=== PATIENT | female | born 1935 ===

== ENCOUNTER 2017-05-28 14:21 | Emergency (ER) | payer MEDICARE ==
--- NOTE | 2017-05-28 15:06 | UC ---
Eye Complaint HPI - History of Current Complaint Chief Complaint: UCEye Stated Complaint: LEFT EYE COMPLAINT Hx Obtained From: Patient Onset/Duration: Gradual Onset, Lasting Weeks, Worse Since - onset. Timing: Constant Severity Initially: Mild Severity Currently: Moderate Location of Injury: Eye Lid (lower) - on the left Character: Dull - soreness. Aggravating Factor(s): Blinking, Other - pushing on it. Alleviating Factor(s): Nothing Associated Signs And Symptoms: Positive: Swelling. Negative: Drainage (Clear), Drainage (Purulent) Related History: Diagnosed As: - Stye - Risk Factors Penetrating Injury Risk Factor: Negative Globe Rupture Risk Factors: Negative Acute Glaucoma Risk Factors: Negative - Allergies/Home Medications Allergies/Adverse Reactions: Allergies Allergy/AdvReac Type Severity Reaction Status Date / Time CASEY Inhibitors AdvReac Intermediate Coughing Verified 05/28/17 15:00 Home Medications: Home Medications Amitriptyline TAB* [Elavil TAB*] 10 mg PO BEDTIME 05/28/17 [History Confirmed ] Atenolol TAB* [Tenormin TAB* 50 MG] 50 mg PO DAILY 05/28/17 [History Confirmed 05/28/17] PMH/Surg Hx/FS Hx/Imm Hx Cardiovascular History: Hypertension - Family History Known Family History: Positive: Hypertension Negative: Cardiac Disease, Diabetes - Social History Occupation: Retired Lives: Alone Alcohol Use: None Substance Use Type: None Smoking Status (MU): Never Smoked Tobacco Have You Smoked in the Last Year: No Review of Systems Eyes: Blurred Vision, Eye Redness - in the lower lid. All Other Systems Reviewed And Are Negative: Yes Physical Exam Triage Information Reviewed: Yes Appearance: Well-Appearing, No Pain Distress, Well-Nourished Vital Signs: Initial Vital Signs Temp 98.1 F 05/28/17 14:54 Pulse 71 05/28/17 14:54 Resp 16 05/28/17 14:54 BP 200/81 05/28/17 14:54 Pulse Ox 99 05/28/17 14:54 Vital Signs Reviewed: Yes Eyes: Positive: Conjunctiva Clear, Other: - Left lower eyelid, swollen, red, tender with internal hordoleum. ENT: Positive: TMs normal - on the left. Right obscurred by impacted cerumen. Neck exam: Normal Respiratory Exam: Normal Cardiovascular Exam: Normal Musculoskeletal Exam: Normal Neurological Exam: Normal Psychological Exam: Normal Skin Exam: Normal Eye Complaint Course/Dx - Differential Dx/Diagnosis Differential Diagnosis/HQI/PQRI: Conjunctivitis, Periorbital Cellulitis, Orbital Cellulitis Provider Diagnoses: Left lower lid, internal hordoleum. Right ear impacted cerumen, S/P flush Discharge - Discharge Plan Condition: Stable Disposition: HOME Prescriptions: Erythromycin (Ophth) [Ilotycin] 0.25 inch LEFT EYE TID #3.5 gm Patient Education Materials: Stye (ED), Erythromycin (Into the eye), Cerumen Impaction (ED) Referrals: Non Staff,Doctor [Primary Care Provider] - 4 Days (follow up with your doctor to get your blood pressure rechecked.) Additional Instructions: EYE OINTMENT USE: Wash hands. Place 1/4" strip across tip of finger. Pull lower lid down with the index finger and stabilize the ointment finger with the middle finger and scrape the ointment off on the lid. Pull the lid out and let go as you look down.
== END 2017-05-28 15:39 | disposition home or self-care (01) ==
LOC: UCCORT 14:21
DX: H00.015 Hordeolum externum left lower eyelid (principal); H61.21 Impacted cerumen, right ear; I10 Essential (primary) hypertension
CPT/HCPCS: 99203; G0463